=== PATIENT | female | born 1960 | race Caucasian/White ===

== ENCOUNTER 2018-07-18 16:47 | Emergency (ER) | payer OTHER ==
[2018-07-18 17:00] VITALS: BP 172/110
--- NOTE | 2018-07-18 17:20 | UC ---
Skin Complaint HPI - HPI Summary HPI Summary: C/O swelling and pain with warmth right side of the face. - History of Current Complaint Chief Complaint: UCDentalProblem Time Seen by Provider: 07/18/18 17:00 Stated Complaint: RIGHT SIDE OF FACE SWOLLEN Hx Obtained From: Patient Hx Last Menstrual Period: 2 yrs ?: No Onset/Duration: Gradual Onset, Lasting Days - 2, Worse Since - onset Timing: Constant Onset Severity: Mild Current Severity: Moderate Pain Intensity: 4 Location: Discrete - left side of the face. Character: Swelling, Painful Aggravating Factor(s): Other - dentures Alleviating Factor(s): Nothing Associated Signs & Symptoms: Positive: Tenderness. Negative: Fever, Chills, Cough, Chest Pain - Allergy/Home Medications Allergies/Adverse Reactions: Allergies Allergy/AdvReac Type Severity Reaction Status Date / Time No Known Allergies Allergy Verified 07/18/18 16:57 PMH/Surg Hx/FS Hx/Imm Hx - Surgical History Surgical History: Yes Surgery Procedure, Year, and Place: R hip. neck,back, leg- 1979. - Family History Known Family History: Positive: Hypertension - Social History Occupation: Employed Full-time Lives: Alone Alcohol Use: Daily Alcohol Amount: couple glasses wine Substance Use Type: None Smoking Status (MU): Heavy Every Day Tobacco Smoker Type: Cigarettes Amount Used/How Often: 1/2 pack daily Cessation Counseling: Patient Advised to Stop Review of Systems All Other Systems Reviewed And Are Negative: Yes Skin: Positive: Other - facial swelling Is Patient Immunocompromised?: No Physical Exam Triage Information Reviewed: Yes Appearance: Well-Appearing, Well-Nourished, Pain Distress - mild Vital Signs: Initial Vital Signs Temp 97.7 F 07/18/18 16:56 Pulse 90 07/18/18 16:56 Resp 18 07/18/18 16:56 BP 172/110 07/18/18 16:56 Pulse Ox 97 07/18/18 16:56 Vital Signs Reviewed: Yes Eyes: Positive: Conjunctiva Clear ENT: Positive: TMs normal, Other - Facial swelling above the right upper gum line up into the cheek. Neck exam: Normal Respiratory Exam: Normal Cardiovascular Exam: Normal Musculoskeletal: Positive: Other: - walks with forearm crutches. Neurological Exam: Normal Psychological Exam: Normal Skin: Positive: Other - redness over the right cheek. Course/Dx - Differential Diagnoses - Skin Complaint Differential Diagnoses: Abscess, Cellulitis, Impetigo, Lymphadenitis - Diagnoses Provider Diagnosis: Abscess of face Discharge - Sign-Out/Discharge Documenting (check all that apply): Patient Departure All imaging exams completed and their final reports reviewed: No Studies - Discharge Plan Condition: Stable Disposition: HOME Prescriptions: Amoxicillin/Clavulanate TAB* [Augmentin TAB 875*] 875 mg PO BID #20 tab Patient Education Materials: Abscess (ED), Amoxicillin/Clavulanate Potassium ( By mouth), Hypertension (ED) Referrals: Judith Nation PA [Primary Care Provider] - 2 Days (follow up for blood pressure recheck.) - Billing Disposition and Condition Condition: STABLE Disposition: Home
== END 2018-07-18 17:29 | disposition home or self-care (01) ==
LOC: UCCORT 16:47
DX: L02.01 Cutaneous abscess of face (principal); F17.210 Nicotine dependence, cigarettes, uncomplicated
CPT/HCPCS: 99212; G0463